=== PATIENT | male | born 1990 | race African-American/Black ===

== ENCOUNTER 2017-04-30 02:33 | Emergency (ER) | payer SELFPAY ==
[~2017-04-30] VITALS: Ht 182.9 cm; Wt 87.3 kg
[2017-04-30 02:40] VITALS: Ht 182.9 cm; Wt 87.3 kg
[2017-04-30 03:50] VITALS: BP 139/84
== END 2017-04-30 03:50 | disposition home or self-care (01) ==
LOC: ED 02:33
DX: J02.9 Acute pharyngitis, unspecified (principal)
CPT/HCPCS: J0696; J1100